=== PATIENT | female | born 1990 | race Caucasian/White ===

== ENCOUNTER 2020-10-01 09:20 | Emergency (ER) | payer SELFPAY ==
[2020-10-01 09:27] VITALS: BP 127/84
--- NOTE | 2020-10-01 09:38 | ED Physician Documentation ---
PD HPI OPHTHO - Stated complaint Stated Complaint: REDNESS LT EYE - Chief complaint Chief Complaint: Heent - History obtained from History obtained from: Patient - Additional information Additional information: Left eye redness and drainage starting today that does not Affect her vision.She does not wear contacts. Review of Systems Constitutional: reports: Reviewed and negative Eyes: reports: Reviewed and negative Ears: reports: Reviewed and negative PD PAST MEDICAL HISTORY - Past Medical History Past Medical History: Yes Cardiovascular: None Respiratory: None Neuro: None Endocrine/Autoimmune: None GI: None CLINICAL DIRECTOR: None : None HEENT: None Psych: Anxiety Musculoskeletal: None Derm: None - Past Surgical History Past Surgical History: No - Present Medications Home Medications: Ambulatory Orders Medication Instructions Recorded Confirmed Fluoxetine HCl [Prozac] 80 mg PO DAILY 10/01/20 10/01/20 Ofloxacin 0.3% Ophth Drops 1 drops LEFTEYE Q4H #5 ml 10/01/20 [Ocuflox 0.3% Ophth Drops] - Allergies Allergies/Adverse Reactions: Allergies Allergy/AdvReac Type Severity Reaction Status Date / Time erythromycin base Allergy Hives Verified 10/01/20 09:25 - Social History Does the pt smoke?: No Smoking Status: Former smoker Does the pt drink ETOH?: Yes ETOH Use: Beer Does the pt have substance abuse?: Yes Substance Use and Type: Marijuana - Immunizations Immunizations are current?: Yes PD ED PE NORMAL - Vitals Vital signs reviewed: Yes - General General: Alert and oriented X 3, No acute distress - HEENT HEENT: PERRL, Other (Left eye with mild conjunctivitis and just a bit of purulent drainage. No fluorescein uptake.) - Neuro Neuro: Alert and oriented X 3, Normal speech Results - Vitals Vitals: Vital Signs - 24 hr 10/01/20 09:25 Temperature 36.9 C Heart Rate 83 Respiratory 16 Rate Blood Pressure 127/84 H O2 Saturation 98 Oxygen O2 Source Room air Departure - Departure Disposition: 01 Home, Self Care Clinical Impression: Conjunctivitis Condition: Good Record reviewed to determine appropriate education?: Yes Instructions: ED Conjunctivitis Nonspecific Prescriptions: Ofloxacin 0.3% Ophth Drops [Ocuflox 0.3% Ophth Drops] 1 drops LEFTEYE Q4H #5 ml Comments: Prescription was sent electronically to [facility] in [place] [facility] [id number] [facility] [place] [address] [employer]. Return if worsening.
== END 2020-10-01 09:52 | disposition home or self-care (01) ==
LOC: ED 09:20
DX: H10.9 Unspecified conjunctivitis (principal); Z87.891 Personal history of nicotine dependence
CPT/HCPCS: 99282; 99283